=== PATIENT | female | born 1980 ===

== ENCOUNTER 2019-01-02 01:03 | Inpatient (IN) | payer OTHER ==
[2019-01-02] MEDS ORDERED: Misoprostol 200 MCG Tab PO PRN (01:10)
[2019-01-02] MEDS ORDERED: Methylergonovine 0.2 MG/1 ML Amp IM PRN (01:10)
[2019-01-02] MEDS ORDERED: Nalbuphine 10 MG/1 ML Vial IVPUSH PRN (01:10)
[2019-01-02] MEDS ORDERED: Butorphanol 1 MG/ML SDV IVPUSH PRN (01:10)
[2019-01-02] MEDS ORDERED: Sodium Chloride 0.9% 2.5 ML Syringe FLUSH PRN (01:10)
[2019-01-02] MEDS ORDERED: Sodium Chloride 0.9% 10 ML Syringe FLUSH PRN (01:10)
[2019-01-02] MEDS ORDERED: Water For Irrigation,Sterile 1,000 ML Container IRR PRN (01:10)
[2019-01-02] MEDS ORDERED: Sodium Chloride 0.9% 10 ML SDV IV PRN (01:10)
[2019-01-02] MEDS ORDERED: Tranexamic Acid 1,000 MG in Sodium Chloride 0.9% 100 ML IV PRN (01:10)
[2019-01-02] MEDS ORDERED: Carboprost Tromethamine 250 MCG/1 ML Amp IM PRN (01:10)
[2019-01-02] MEDS ORDERED: Lidocaine 1% 50 ML MDV INJECT PRN (01:10)
[2019-01-02] MEDS ORDERED: Lactated Ringers 1,000 ML IV SCH (01:15)
[2019-01-02] MEDS ORDERED: Oxytocin/0.9 % Sodium Chloride 30 UNIT/500 ML BAG IV SCH (01:15)
--- NOTE | 2019-01-02 01:27 | PCM.LDHP ---
L&D History of Present Illness - General Date of Service: 01/02/19 Admit Problem/Dx: Patient Status Order with Admit Dx/Problem 01/02/19 01:05 Patient Status [ADT] Routine Admission Diagnosis/Problem Admission Diagnosis/Problem 01/02/19 01:22 38yo EDC 01/11/2019 38 5/7wks comes SROM clear fluid. History of Antibody D positive, all MoM ultrasounds WNL. candidate with Dr Brown approval for Vaginal delivery. A neg, RI, GBS neg. SVE 2-/-1 clear fluid. Source of Information: Patient History Limitations: Reports: No Limitations - History of Present Illness Improves with: Reports: None Worsens with: Reports: None Associated Symptoms: Reports: N - Related Data Allergies/Adverse Reactions: Allergies Allergy/AdvReac Type Severity Reaction Status Date / Time seasonal Allergy Mild Other Uncoded 12/26/18 09:48 Home Medications: Home Meds PNV95/Ferrous Fumarate/FA [ Tablet] 1 each PO DAILY 12/03/18 [History] H&P Review of Systems - Review of Systems: Review Of Systems: See Below General: Reports: No Symptoms HEENT: Reports: No Symptoms Pulmonary: Reports: No Symptoms Cardiovascular: Reports: No Symptoms Gastrointestinal: Reports: No Symptoms Genitourinary: Reports: No Symptoms Musculoskeletal: Reports: No Symptoms Skin: Reports: No Symptoms Psychiatric: Reports: No Symptoms Neurological: Reports: No Symptoms Hematologic/Lymphatic: Reports: No Symptoms Immunologic: Reports: No Symptoms L&D Exam - Exam Exam: See Below - Vital Signs Weight: 77.564 kg - OB Specific Contraction Intensity: Strong Movement: Active Heart Tones: Present Heart Tones per Min: 150 Heart Rate (FHR) Variability: Moderate (6-25 bmp) Presentation: Vertex Estimated Weight: 3200 - Bethea Score Bethea Score Cervix Position: Posterior Bethea Score Consistency: Soft Bethea Score Effacement: >80% Bethea Score Dilation: 3-4 cm Bethea Score 's Station: -1 ,0 Bethea Score Total: 9 - Exam General: Alert, Oriented, Cooperative HEENT: Hearing Intact Lungs: Clear to Auscultation, Normal Respiratory Effort Cardiovascular: Regular Rate, Regular Rhythm, Normal S1, Normal S2 GI/Abdominal Exam: Soft, Non-Tender Rectal Exam: Deferred Genitourinary: Normal external exam, Normal bimanual exam, Cervical dilitation, Cervical fluid Extremities: Normal Inspection, Normal Range of Motion, Non-Tender, No Pedal Edema Skin: Warm, Dry, Intact Neurological: Cranial Nerves Intact, Strength Equal Bilateral, Normal Gait, Normal Speech, Normal Tone, Sensation Intact Psychiatric: Alert, Normal Affect, Normal Mood - Problem List (1) Supervision of normal IUP (intrauterine ) in primigravida SNOMED Code(s): 95985802, 040578748, 202385394, 806322633 ICD Code: Z34.00 - ENCNTR FOR SUPRVSN OF NORMAL FIRST , UNSP TRIMESTER Status: Acute Priority: High Current Visit: Yes Qualifiers: Trimester: third trimester Qualified Code(s): Z34.03 - Encounter for supervision of normal first , third trimester (2) Hx successful (vaginal after ), currently SNOMED Code(s): 455315304, 046497578, 294066831 ICD Code: O34.219 - MATERNAL CARE FOR UNSP TYPE SCAR FROM PREVIOUS DEL Status: Acute Priority: High Current Visit: Yes (3) 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 SNOMED Code(s): 785844249 ICD Code: Z31.82 - ENCOUNTER FOR RH INCOMPATIBILITY STATUS Status: Acute Priority: High Current Visit: Yes Problem List Initiated/Reviewed/Updated: Yes Orders Last 24hrs: Active Orders 24 hr Category Date Time Status Patient Status [ADT] Routine ADT 01/02/19 01:05 Active Heart Tones [RC] CONTINUOUS Care 01/02/19 01:10 Active Non Stress Test [RC] PER UNIT ROUTINE Care 01/02/19 01:10 Active May Shower [RC] ASDIRECTED Care 01/02/19 01:10 Active Notify Provider [RC] PRN Care 01/02/19 01:10 Active Up ad Angela [RC] ASDIRECTED Care 01/02/19 01:10 Active Vaginal Exam [RC] PRN Care 01/02/19 01:10 Active Vital Signs [RC] PER UNIT ROUTINE Care 01/02/19 01:10 Active CBC W/O DIFF,HEMOGRAM [HEME] Routine Lab 01/02/19 01:10 Ordered RAPID PLASMA REAGIN, QUANT [REF] Routine Lab 01/02/19 01:10 Ordered TYPE AND SCREEN [BBK] Routine Lab 01/02/19 01:10 Ordered Butorphanol [Stadol] Med 01/02/19 01:10 Active 1 mg IVPUSH Q1H PRN Carboprost Tromethamine [Hemabate DS] Med 01/02/19 01:10 Active 250 mcg IM ASDIRECTED PRN Lactated Ringers [Ringers, Lactated] 1,000 ml Med 01/02/19 01:15 Active IV ASDIRECTED Lidocaine 1% [Xylocaine 1%] Med 01/02/19 01:10 Active 50 ml INJECT ONETIME PRN Methylergonovine [Methergine] Med 01/02/19 01:10 Active 0.2 mg IM ASDIRECTED PRN Nalbuphine [Nubain] Med 01/02/19 01:10 Active 10 mg IVPUSH Q1H PRN Oxytocin/0.9 % Sodium Chloride [Oxytocin 30 Unit/500 ML Med 01/02/19 01:15 Active -NS] 30 unit in 500 ml IV TITRATE Sodium Chloride 0.9% [Normal Saline] Med 01/02/19 01:10 Active 10 ml IV ASDIRECTED PRN Sodium Chloride 0.9% [Saline Flush] Med 01/02/19 01:10 Active 10 ml FLUSH ASDIRECTED PRN Sodium Chloride 0.9% [Saline Flush] Med 01/02/19 01:10 Active 2.5 ml FLUSH ASDIRECTED PRN Tranexamic Acid [Cyklokapron] 1,000 mg Med 01/02/19 01:10 Active Sodium Chloride 0.9% [Normal Saline] 100 ml IV ONETIME Water For Irrigation,Sterile [Sterile Water for Med 01/02/19 01:10 Active Irrigation] 1,000 ml IRR ASDIRECTED PRN miSOPROStol [Cytotec] Med 01/02/19 01:10 Active 200 mcg PO ONETIME PRN Scalp Electrode [WOMSER] Per Unit Routine Oth 01/02/19 01:10 Ordered Peripheral IV Insertion Adult [OM.PC] Routine Oth 01/02/19 01:10 Ordered Resuscitation Status Routine Resus Stat 01/02/19 01:10 Ordered Medication Orders Butorphanol Tartrate (Stadol) 1 mg IVPUSH Q1H PRN PRN Reason: Pain Carboprost Tromethamine (Hemabate Ds) 250 mcg IM ASDIRECTED PRN PRN Reason: Post Hemorrhage Lactated Ringer's (Ringers, Lactated) 1,000 mls @ 150 mls/hr IV ASDIRECTED DEBORAH Oxytocin/Sodium Chloride (Oxytocin 30 Unit/500 Ml-Ns) 30 unit in 500 mls @ 999 mls/hr IV TITRATE [facility]BORAH Tranexamic Acid 1,000 mg/ (Sodium Chloride) 110 mls @ 660 mls/hr IV ONETIME PRN PRN Reason: Bleeding Lidocaine HCl (Xylocaine 1%) 50 ml INJECT ONETIME PRN PRN Reason: Laceration repair Methylergonovine Maleate (Methergine) 0.2 mg IM ASDIRECTED PRN PRN Reason: Post Hemorrhage Misoprostol (Cytotec) 200 mcg PO ONETIME PRN PRN Reason: Post Hemorrhage Nalbuphine HCl (Nubain) 10 mg IVPUSH Q1H PRN PRN Reason: Pain (severe 7-10) Sodium Chloride (Saline Flush) 10 ml FLUSH ASDIRECTED PRN PRN Reason: Keep Vein Open Sodium Chloride (Saline Flush) 2.5 ml FLUSH ASDIRECTED PRN PRN Reason: Keep Vein Open Sodium Chloride (Normal Saline) 10 ml IV ASDIRECTED PRN PRN Reason: IV Use Sterile Water (Sterile Water For Irrigation) 1,000 ml IRR ASDIRECTED PRN PRN Reason: delivery Assessment/Plan Comment:: Labor A: 38yo EDC 01/11/2019 38 5/7wks comes SROM clear fluid. History of Antibody D positive, all MoM ultrasounds WNL. candidate with Dr Brown approval for Vaginal delivery. A neg, RI, GBS neg. SVE 2-3//-1 clear fluid. P: Admit, Dr Brown and Anish RN timekeeping supervisor notified and updated, anticipate .
--- NOTE | 2019-01-02 02:36 | PCM.DEL ---
L & D Note - General Info Date of Service: 01/02/19 Mother's Due Date: 01/11/19 - Delivery Note Labor: Spontaneous Delivery Outcome: Livebirth Infant Delivery Method: Spontaneous Vaginal Delivery-Single Infant Delivery Mode: Spontaneous Presentation: Vertex Nuchal Cord: Present (x1 delivered through) Anesthesia Type: None Amniotic Fluid Description: Clear Episiotomy Type: None Laceration: None Placenta: Intact, Spontaneous Cord: 3 Vessels Estimated Blood Loss: 100 Resuscitation Needed: No Second Stage Interventions: Reports: Pushing, Pulls Own Legs Back Delivery Comments (Free Text/Narrative):: 38yo EDC 01/11/2019 38 5/7wks hx C/S, x2, AMA, Antibody D positive. Followed by me in the clinic comes into L&D in early labor and 1hour has a of viable female. Head delivered with good pushing, nuchal x1 tight, delivered through, shoulders and body followed easily. Infant placed on mothers abdomen and with stimulation vigorous crying noted. Delayed cord clamping, pitocin to IVF, cord clamped and cut by FOB. Cord blood collected. Placenta delivered with gentle traction and active management. Inspection noted small lac that was hemostatic and did not need repair. girl apgars 8/9, Wt: 8lb 4oz. Intact perineum, EBL 100cc. Mother and baby left bonding well in recover both stable. - General Info Date of Service: 01/02/19 Admission Dx/Problem (Free Text): Patient Status Order with Admit Dx/Problem 01/02/19 01:05 Patient Status [ADT] Routine Admission Diagnosis/Problem Admission Diagnosis/Problem 01/02/19 01:22 38yo EDC 01/11/2019 38 5/7wks comes SROM clear fluid. History of Antibody D positive, all MoM ultrasounds WNL. candidate with Dr Brown approval for Vaginal delivery. A neg, RI, GBS neg. SVE 2-3//-1 clear fluid. Functional Status: Reports: Pain Controlled, Tolerating Diet - Review of Systems General: Reports: No Symptoms HEENT: Reports: No Symptoms Pulmonary: Reports: No Symptoms Cardiovascular: Reports: No Symptoms Gastrointestinal: Reports: No Symptoms Genitourinary: Reports: No Symptoms Musculoskeletal: Reports: No Symptoms Skin: Reports: No Symptoms Neurological: Reports: No Symptoms Psychiatric: Reports: No Symptoms - Patient Data Weight - Most Recent: 77.564 kg I&O - Last 24 Hours: Intake & Output 01/01/19 01/01/19 01/02/19 14:59 22:59 06:59 Intake Total 700 Balance 700 Lab Results Last 24 Hours: Laboratory Results - last 24 hr 01/02/19 Range/Units 01:25 WBC 10.70 (4.0-11.0) K/uL RBC 4.00 L (4.30-5.90) M/uL Hgb 12.4 (12.0-16.0) g/dL Hct 35.8 L (36.0-46.0) % MCV 89.5 (80.0-98.0) fL MCH 31.0 (27.0-32.0) pg MCHC 34.6 (31.0-37.0) g/dL RDW Std Deviation 39.7 (28.0-62.0) fl RDW Coeff of Isidoro 13 (11.0-15.0) % Plt Count 231 (150-400) K/uL MPV 10.50 (7.40-12.00) fL Med Orders - Current: Current Medications Butorphanol Tartrate (Stadol) 1 mg IVPUSH Q1H PRN PRN Reason: Pain Last Admin: 01/02/19 01:44 Dose: 1 mg Carboprost Tromethamine (Hemabate Ds) 250 mcg IM ASDIRECTED PRN PRN Reason: Post Hemorrhage Lactated Ringer's (Ringers, Lactated) 1,000 mls @ 150 mls/hr IV ASDIRECTED [facility] Last Admin: 01/02/19 01:20 Dose: 999 mls/hr Oxytocin/Sodium Chloride (Oxytocin 30 Unit/500 Ml-Ns) 30 unit in 500 mls @ 999 mls/hr IV TITRATE [facility] Last Admin: 01/02/19 02:08 Dose: 999 mls/hr Tranexamic Acid 1,000 mg/ (Sodium Chloride) 110 mls @ 660 mls/hr IV ONETIME PRN PRN Reason: Bleeding Lidocaine HCl (Xylocaine 1%) 50 ml INJECT ONETIME PRN PRN Reason: Laceration repair Methylergonovine Maleate (Methergine) 0.2 mg IM ASDIRECTED PRN PRN Reason: Post Hemorrhage Misoprostol (Cytotec) 200 mcg PO ONETIME PRN PRN Reason: Post Hemorrhage Nalbuphine HCl (Nubain) 10 mg IVPUSH Q1H PRN PRN Reason: Pain (severe 7-10) Sodium Chloride (Saline Flush) 10 ml FLUSH ASDIRECTED PRN PRN Reason: Keep Vein Open Sodium Chloride (Saline Flush) 2.5 ml FLUSH ASDIRECTED PRN PRN Reason: Keep Vein Open Sodium Chloride (Normal Saline) 10 ml IV ASDIRECTED PRN PRN Reason: IV Use Sterile Water (Sterile Water For Irrigation) 1,000 ml IRR ASDIRECTED PRN PRN Reason: delivery - Exam General: Alert, Oriented, Cooperative, No Acute Distress Lungs: Normal Respiratory Effort Cardiovascular: Gallops GI/Abdominal Exam: Soft, Pelvis Stable (Female) Exam: Normal External Exam, Vaginal Bleeding. No: Vaginal Lesions, Vaginal Tears Back Exam: Normal Inspection, Full Range of Motion Extremities: Normal Inspection, Normal Range of Motion, Non-Tender, No Pedal Edema Skin: Warm, Dry, Intact Neurological: No New Focal Deficit, Normal Speech, Normal Tone, Strength Equal Bilateral, Sensation Intact Psy/Mental Status: Alert, Normal Affect, Normal Mood - Problem List & Annotations (1) Supervision of normal IUP (intrauterine ) in primigravida SNOMED Code(s): 50993240, 869242941, 917731933, 388944963 Code(s): Z34.00 - ENCNTR FOR SUPRVSN OF NORMAL FIRST , UNSP TRIMESTER Status: Acute Priority: High Current Visit: Yes Qualifiers: Trimester: third trimester Qualified Code(s): Z34.03 - Encounter for supervision of normal first , third trimester (2) Hx successful (vaginal after ), currently SNOMED Code(s): 067535904, 998002624, 147193978 Code(s): O34.219 - MATERNAL CARE FOR UNSP TYPE SCAR FROM PREVIOUS DEL Status: Acute Priority: High Current Visit: Yes (3) 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 SNOMED Code(s): 060043619 Code(s): Z31.82 - ENCOUNTER FOR RH INCOMPATIBILITY STATUS Status: Acute Priority: High Current Visit: Yes (4) , delivered SNOMED Code(s): 896991990 Code(s): O34.219 - MATERNAL CARE FOR UNSP TYPE SCAR FROM PREVIOUS DEL Status: Acute Priority: High Current Visit: Yes - Problem List Review Problem List Initiated/Reviewed/Updated: Yes - My Orders Last 24 Hours: My Active Orders 01/02/19 01:05 Patient Status [ADT] Routine 01/02/19 01:10 May Shower [RC] ASDIRECTED Notify Provider [RC] PRN Up ad Angela [RC] ASDIRECTED Vital Signs [RC] PER UNIT ROUTINE Butorphanol [Stadol] 1 mg IVPUSH Q1H PRN Carboprost Tromethamine [Hemabate DS] 250 mcg IM ASDIRECTED PRN Lidocaine 1% [Xylocaine 1%] 50 ml INJECT ONETIME PRN Methylergonovine [Methergine] 0.2 mg IM ASDIRECTED PRN Nalbuphine [Nubain] 10 mg IVPUSH Q1H PRN Sodium Chloride 0.9% [Normal Saline] 10 ml IV ASDIRECTED PRN Sodium Chloride 0.9% [Saline Flush] 10 ml FLUSH ASDIRECTED PRN Sodium Chloride 0.9% [Saline Flush] 2.5 ml FLUSH ASDIRECTED PRN Tranexamic Acid [Cyklokapron] 1,000 mg Sodium Chloride 0.9% [Normal Saline] 100 ml IV ONETIME Water For Irrigation,Sterile [Sterile Water for Irrigation] 1,000 ml IRR ASDIRECTED PRN miSOPROStol [Cytotec] 200 mcg PO ONETIME PRN Scalp Electrode [WOMSER] Per Unit Routine Peripheral IV Insertion Adult [OM.PC] Routine Resuscitation Status Routine 01/02/19 01:15 Lactated Ringers [Ringers, Lactated] 1,000 ml IV ASDIRECTED Oxytocin/0.9 % Sodium Chloride [Oxytocin 30 Unit/500 ML-NS] 30 unit in 500 ml IV TITRATE 01/02/19 01:25 RAPID PLASMA REAGIN, QUANT [REF] Routine TYPE AND SCREEN [BBK] Routine - Plan Plan:: Labor A: 38yo EDC 01/11/2019 38 5/7wks comes SROM clear fluid. History of Antibody D positive, all MoM ultrasounds WNL. candidate with Dr Brown approval for Vaginal delivery. A neg, RI, GBS neg. SVE 2-3/90/-1 clear fluid. P: Admit, Dr Brown and Anish CISNEROS station supervisor notified and updated, anticipate . Delivery A: viable female, APGARS 8/9 Wt: 8lb 4oz, Intact perineum, EBL 100cc. Mom and baby stable P: Routine pp plan of care
[2019-01-02] MEDS ORDERED: Lanolin 100% Cream 7 GM Tube TOP PRN (02:43)
[2019-01-02] MEDS ORDERED: Witch Hazel Medicated Pads 40/Jar TOP PRN (02:43)
[2019-01-02] MEDS ORDERED: oxyCODONE 5 MG Tab PO PRN (02:43)
[2019-01-02] MEDS ORDERED: Bisacodyl 10 MG Supp RECTAL PRN (02:43)
[2019-01-02] MEDS ORDERED: Acetaminophen 500 MG Tab PO PRN ×2 (02:43)
[2019-01-02] MEDS ORDERED: Ibuprofen 400 MG Tab PO PRN (02:43)
[2019-01-02] MEDS ORDERED: Benzocaine/Menthol 20%-0.5% Spray 78 GM Cannister TOP PRN (02:43)
[2019-01-02] MEDS ORDERED: Docusate Sodium 100 MG Cap PO PRN (02:43)
[2019-01-02] MEDS: Ibuprofen 800 MG Tab PO PRN ×3 (04:24→16:46)
[2019-01-03] MEDS: Ibuprofen 800 MG Tab PO PRN (00:41)
--- NOTE | 2019-01-03 09:00 | PCM.DCSUM1 ---
Discharge Summary - Hospital Course Diagnosis: Stroke: No Modified Bushra Scale: No Symptoms at All Modified Bushra Scale Score: 0 - Discharge Data Discharge Date: 01/03/19 Discharge Disposition: Home, Self-Care 01 Condition: Good - Referral to Home Health Primary Care Physician: PCP None - Discharge Diagnosis/Problem(s) (1) Supervision of normal IUP (intrauterine ) in primigravida SNOMED Code(s): 64623333, 629768315, 927835023, 095075276 ICD Code: Z34.00 - ENCNTR FOR SUPRVSN OF NORMAL FIRST , UNSP TRIMESTER Status: Acute Priority: High Current Visit: Yes Qualifiers: Trimester: third trimester Qualified Code(s): Z34.03 - Encounter for supervision of normal first , third trimester (2) Hx successful (vaginal after ), currently SNOMED Code(s): 962644273, 287067482, 125530972 ICD Code: O34.219 - MATERNAL CARE FOR UNSP TYPE SCAR FROM PREVIOUS DEL Status: Acute Priority: High Current Visit: Yes (3) 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 SNOMED Code(s): 910014591 ICD Code: Z31.82 - ENCOUNTER FOR RH INCOMPATIBILITY STATUS Status: Acute Priority: High Current Visit: Yes (4) , delivered SNOMED Code(s): 852028538 ICD Code: O34.219 - MATERNAL CARE FOR UNSP TYPE SCAR FROM PREVIOUS DEL Status: Acute Priority: High Current Visit: Yes - Patient Instructions Diet: Usual Diet as Tolerated Activity: As Tolerated, No Strenuous Activities, Rest and Relax Today Driving: May Drive Today Showering/Bathing: May Shower Notify Provider of: Fever, Increased Pain, Swelling and Redness, Nausea and/or Vomiting Other/Special Instructions: Discharge home with . Follow up in 6 weeks for . - Discharge Plan *PRESCRIPTION DRUG MONITORING PROGRAM REVIEWED*: Not Applicable *COPY OF PRESCRIPTION DRUG MONITORING REPORT IN PATIENT JOHNNY: Not Applicable Home Medications: Home Meds PNV95/Ferrous Fumarate/FA [ Tablet] 1 each PO DAILY 12/03/18 [History] Oxygen Therapy Mode: Room Air Patient Handouts: Home Care Instructions for Mom, Vaginal Delivery, Care After Referrals: [facility] [Outside] Elle Booth CNM [Mid-] - 02/22/19 1:30 pm (Follow up with Elle February 22, 2019 at 1:30 pm) - Discharge Summary/Plan Comment DC Time >30 min.: Yes - General Info Date of Service: 01/03/19 Admission Dx/Problem (Free Text: Patient Status Order with Admit Dx/Problem 01/02/19 01:05 Patient Status [ADT] Routine Admission Diagnosis/Problem Admission Diagnosis/Problem 01/02/19 01:22 38yo EDC 01/11/2019 38 5/7wks comes SROM clear fluid. History of Antibody D positive, all MoM ultrasounds WNL. candidate with Dr Brown approval for Vaginal delivery. A neg, RI, GBS neg. SVE 2-/-1 clear fluid. Functional Status: Reports: Pain Controlled, Tolerating Diet, Ambulating, Urinating - Review of Systems General: Reports: No Symptoms HEENT: Reports: No Symptoms Pulmonary: Reports: No Symptoms Cardiovascular: Reports: No Symptoms Gastrointestinal: Reports: No Symptoms Genitourinary: Reports: No Symptoms Musculoskeletal: Reports: No Symptoms Skin: Reports: No Symptoms Neurological: Reports: No Symptoms Psychiatric: Reports: No Symptoms - Patient Data Vitals - Most Recent: Last Vital Signs Temp 36.7 C 01/03/19 08:00 Pulse 80 01/03/19 08:00 Resp 16 01/03/19 08:00 BP 113/66 01/03/19 08:00 Pulse Ox 96 01/03/19 08:00 Weight - Most Recent: 77.564 kg Med Orders - Current: Current Medications Acetaminophen (Tylenol Extra Strength) 500 mg PO Q4H PRN PRN Reason: Pain Acetaminophen (Tylenol Extra Strength) 1,000 mg PO Q4H PRN PRN Reason: Pain Benzocaine/Menthol (Dermoplast Pain Relief 20%-0.5% [place]) 78 gm TOP ASDIRECTED PRN PRN Reason: Perineal Comfort Measure Last Admin: 01/02/19 04:24 Dose: 1 canister Bisacodyl (Dulcolax) 10 mg RECTAL ONETIME PRN PRN Reason: Constipation Docusate Sodium (Colace) 100 mg PO BID PRN PRN Reason: Constipation Last Admin: 01/02/19 20:58 Dose: 100 mg Emollient Ointment (Lansinoh Hpa) 0 gm TOP ASDIRECTED PRN PRN Reason: Sore Nipples Last Admin: 01/02/19 04:24 Dose: 1 tube Ibuprofen (Motrin) 400 mg PO Q4H PRN PRN Reason: Pain Last Admin: 01/03/19 08:12 Dose: 400 mg Ibuprofen (Motrin) 800 mg PO Q6H PRN PRN Reason: Pain Last Admin: 01/03/19 00:41 Dose: 800 mg Oxycodone HCl (Oxycodone) 5 mg PO Q2H PRN PRN Reason: Pain [place] (Tucks) 1 pad TOP ASDIRECTED PRN PRN Reason: comfort care Last Admin: 01/02/19 04:23 Dose: 1 tub Discontinued Medications Butorphanol Tartrate (Stadol) 1 mg IVPUSH Q1H PRN PRN Reason: Pain Last Admin: 01/02/19 01:44 Dose: 1 mg Carboprost Tromethamine (Hemabate Ds) 250 mcg IM ASDIRECTED PRN PRN Reason: Post Hemorrhage Lactated Ringer's (Ringers, Lactated) 1,000 mls @ 150 mls/hr IV ASDIRECTED [facility] Last Admin: 01/02/19 01:20 Dose: 999 mls/hr Oxytocin/Sodium Chloride (Oxytocin 30 Unit/500 Ml-Ns) 30 unit in 500 mls @ 999 mls/hr IV TITRATE [facility] Last Admin: 01/02/19 02:08 Dose: 999 mls/hr Tranexamic Acid 1,000 mg/ (Sodium Chloride) 110 mls @ 660 mls/hr IV ONETIME PRN PRN Reason: Bleeding Lidocaine HCl (Xylocaine 1%) 50 ml INJECT ONETIME PRN PRN Reason: Laceration repair Methylergonovine Maleate (Methergine) 0.2 mg IM ASDIRECTED PRN PRN Reason: Post Hemorrhage Misoprostol (Cytotec) 200 mcg PO ONETIME PRN PRN Reason: Post Hemorrhage Nalbuphine HCl (Nubain) 10 mg IVPUSH Q1H PRN PRN Reason: Pain (severe 7-10) Sodium Chloride (Saline Flush) 10 ml FLUSH ASDIRECTED PRN PRN Reason: Keep Vein Open Sodium Chloride (Saline Flush) 2.5 ml FLUSH ASDIRECTED PRN PRN Reason: Keep Vein Open Sodium Chloride (Normal Saline) 10 ml IV ASDIRECTED PRN PRN Reason: IV Use Sterile Water (Sterile Water For Irrigation) 1,000 ml IRR ASDIRECTED PRN PRN Reason: delivery - Exam General: Reports: Alert, Oriented, Cooperative, No Acute Distress Lungs: Reports: Normal Respiratory Effort GI/Abdominal Exam: Soft, Non-Tender, Pelvis Stable (Female) Exam: Deferred, Vaginal Bleeding Rectal (Female) Exam: Deferred Back Exam: Reports: Full Range of Motion Extremities: Normal Range of Motion, Non-Tender, No Pedal Edema Skin: Reports: Warm, Dry, Intact Neurological: Reports: No New Focal Deficit, Normal Speech, Normal Tone, Strength Equal Bilateral, Sensation Intact Psy/Mental Status: Reports: Alert, Normal Affect, Normal Mood
== END 2019-01-03 11:47 | disposition home or self-care (01) | DRG 807 ==
LOC: MW.OBCHECK 01:03 → MW.OB 01:05 → OBSVTOIN 02:08 → MW.OBCHECK 02:08 → MW.OB 05:07
PROVIDERS: ADMIT Obstetrics & Gynecology; ATTEND Advanced Practice Midwife
PROC: 10E0XZZ Delivery of Products of Conception, External Approach (ICD-10-PCS; principal; 2019-01-02)
DX: O34.211 Maternal care for low transverse scar from previous cesarean delivery (principal); Z37.0 Single live birth; O69.81X0 Labor and delivery complicated by cord around neck, without compression, not applicable or unspecified; Z3A.38 38 weeks gestation of pregnancy
CPT/HCPCS: 36415; 59025; 59409; 85027; 86593; 86850; 86900; 86901; A9270-GY; J0595; J2590; J7120